=== PATIENT | female | born 1950 | race Caucasian/White ===

== ENCOUNTER 2016-11-12 08:18 | Emergency (ER) | payer MEDICARE, OTHER ==
[~2016-11-12] VITALS: Ht 154.9 cm; Wt 95.5 kg
[2016-11-12 08:20] VITALS: BP 235/108; PULSE 76; RESP 20; O2SAT 94
--- NOTE | 2016-11-12 08:28 | ED.REPORT ---
HPI-Abd Pain F 40 and Over Date of Service Nov 12, 2016 ED Provider: Joan Snyder MD 66 year old female with a history of hypertension, diabetes and S/P hysterectomy , appendectomy and cholecystectomy who presents to the ED due to a gradual onset of L flank pain since last night. The pain has been constant with intermittent sharp pain with radiation to the LLQ. Pt denies any exacerbating or relieving factors. Pt reports associated nausea and non-bloody vomiting. Pt denies diarrhea, rash and any recent illness. She does report that it has been difficult to have a BM. Nursing Notes Stated Complaint: PAIN LEFT SIDE/VOMITING Chief Complaint: Female Abdominal Pain Nursing Notes Reviewed: Yes Allergies: Coded Allergies: Penicillins (Verified Allergy, Mild, Rash, 06/10/14) chlorpromazine (Verified Allergy, Mild, Rash,Itching,, 06/10/14) Sulfa (Sulfonamide Antibiotics) (Verified Allergy, Unknown, 06/10/14) Scheduled Amlodipine (Amlodipine) 10 Mg Tablet 10 MG DAILY Benazepril (Benazepril) 40 Mg Tablet 40 MG DAILY Furosemide (Furosemide) 40 Mg Tablet 40 MG DAILY Glipizide (Glipizide) 5 Mg Tablet 5 MG BID Metformin (Metformin) 500 Mg Tablet 500 MG PO BID Metoprolol Succinate ER (Metoprolol Succinate ER) 50 Mg Tab.er.24h 50 MG DAILY Ondansetron ODT (Ondansetron ODT) 8 Mg Tab.rapdis 8 MG PO Q8H Scheduled PRN oxyCODONE-Acetaminophen 5-325 mg (oxyCODONE-Acetaminophen 5-325 mg) 1 Each Tablet 1-2 TAB PO Q6H PRN PRN For Pain General Time Seen by MD: 08:27 Chief Complaint Flank pain left Hx Obtained From: Patient Arrived By: Walk-in Sudden in Onset?: No Onset Occurred: Yesterday Symptom Duration: Since onset Progression since Onset: Constant, Gradually worsening Location: : Flank left Quality: Painful, Sharp Radiation: : LLQ Severity: Current: Moderate Associated with: Reports: Nausea, Vomiting Pertinent Negative: Exacerbated by nothing, Relieved by nothing Past Medical History Past Medical History Reports: Diabetes mellitus, Hypertension Past Surgical History Reports: Appendectomy, Cholecystectomy, Hysterectomy Smoking History Never Smoker Social History Alcohol Use: "Social" Drug Use: Denies drug use Review of Systems Basic Review of Systems Eyes: Vision NL, No discharge ENT: Hearing NL, No pain, No nasal congestion, No pharyngeal pain Neurologic: NL mental status, No weakness, No numbness Psychiatric: Normal thought content Constitutional: Denies: Fever Respiratory: Denies: Shortness of breath Cardiovascular: Denies: Chest pain GI: Reports: Abdominal pain, Nausea, Vomiting, Denies: Diarrhea, Hematemesis, Hematochezia Female: Reports: Flank pain, Denies: Dysuria Complete sys rev & neg: except as marked. Physical Exam Vital Signs Vital Signs (First) Date Time Temp Pulse Resp B/P Pulse Ox O2 Delivery O2 Flow Rate FiO2 11/12/16 08:20 36.1 76 20 235/108 94 11/12/16 09:33 Room Air Initial VS: Reviewed, Vital signs abnormal Head / Eyes: Atraumatic, Normocephalic, PERRL ENT: Mucous membranes moist, Conjunctiva normal, No scleral icterus Neck: Supple, Full range of motion Extremities: Vascular intact, Neuro intact Skin: Warm, Dry Neurologic: Alert, Oriented Psychiatric: Behavior normal, Normal thought content General/Constitutional: Awake, Alert, Cooperative Respiratory / Chest: Breath sounds NL, Breath sounds = bilat, No respiratory distress, No rales, No rhonchi, No wheezing, No stridor Cardiovascular: Heart rate NL, Regular rhythm, Heart sounds NL, Peripheral circulation NL Abdomen: Soft, No guarding, No rebound Area of pain to the L flank and L iliac crest, but not TTP on exam. Back: Inspection NL, Full range of motion, No CVA tenderness Interpretation & Diagnostics Lab Results Interpretation Result Diagram: 11/12/16 0850 11/12/16 0850 Test 11/12/16 08:40 11/12/16 08:50 Urine Color Straw (YELLOW) Urine Appearance Hazy (CLEAR,HAZY) Urine pH 6.5 (5.0-8.0) Urine Specific [place] 1.020 (1.003-1.035) Urine Protein 100mg/dL (NEG,TRACE) Urine Glucose (UA) Negativemg/dL (NEGATIVE) Urine Ketones Negativemg/dL (NEGATIVE) Urine Occult Blood Large (NEGATIVE) Urine Nitrite Negative (NEGATIVE) Urine Bilirubin Negative (NEGATIVE) Urine Urobilinogen Normalmg/dL (NORMAL) Urine Leukocyte Esterase Trace (NEGATIVE) Urine RBC 11-50/hpf (0-2) Urine WBC 0-5/hpf (0-5) Urine Epithelial Cells Occasional/hpf (NONE-MOD) Urine Crystals None seen (NONE SEEN) Urine Bacteria Few/hpf (NONE-FEW) Urine Hyaline Casts None/lpf (NONE) Urine Granular Casts None seen (NONE SEEN) Urine Waxy Casts None seen (NONE SEEN) Urine Red Blood Cell Casts None seen (NONE SEEN) Urine White Blood Cell Casts None seen (NONE SEEN) Urine Mucus None seen (None Seen) Urine Trichomonas None seen (NONE SEEN) Urine Yeast Few (NONE SEEN) Urinalysis Comment None Urine Culture Reflexed Indicated White Blood Count 11.7th/mm3 (3.8-10.1) Red Blood Count 5.43mil/mm3 (3.90-5.20) Hemoglobin 15.2g/dL (12.0-15.6) Hematocrit 45.5% (35.0-46.0) Mean Corpuscular Volume 83.8fL (81-100) Mean Corpuscular Hemoglobin 28.0pg (27.0-35.0) Mean Corpuscular Hemoglobin Concent 33.4% (32.0-37.0) Red Cell Distribution Width 13.4% (12.3-15.4) Platelet Count 166bil/L (150-400) Neutrophils (%) (Auto) 74.8% (40-74) Lymphocytes (%) (Auto) 16.0% (14-46) Monocytes (%) (Auto) 6.6% (4-12) Eosinophils (%) (Auto) 2.0% (0-5) Basophils (%) (Auto) 0.3% (0-3) Sodium Level 139mEq/L (134-144) Potassium Level 3.2mEq/L (3.5-5.2) Chloride Level 101mEq/L (97-108) Carbon Dioxide Level 23mmol/L (18-29) Blood Urea Nitrogen 11mg/dL (8-27) Creatinine 0.86mg/dL (0.57-1.00) Estimat Glomerular Filtration Rate 94mL/min (>59) Glucose Level 347mg/dL (60-99) Calcium Level 8.8mg/dL (8.5-10.1) Magnesium Level 1.6mg/dL (1.6-2.6) Total Bilirubin 0.7mg/dL (0.0-1.2) Aspartate Amino Transf (AST/SGOT) 16U/L (0-50) Alanine Aminotransferase (ALT/SGPT) 13U/L (0-32) Alkaline Phosphatase 111U/L (25-165) Total Protein 7.2g/dL (6.4-8.4) Albumin 3.8g/dL (3.4-5.0) Lipase 48U/L (13-60) Hold Sanchez Top Tube Received (Received) General Lab Results Interp 1: Labs reviewed CT Abd / Pelvis Interpretation IMPRESSION: 1. Left hydroureteronephrosis secondary to obstructing 4 mm calculus in the distal left ureter. 2. No additional nephrolithiasis seen. There is a 1 cm sized hyperdensity in the superior pole of the left kidney, likely hyperdense cyst but indeterminate. 3. Status post appendectomy, hysterectomy and cholecystectomy. Ovaries are not seen and may be atrophic or surgically absent. 4. Small fat filled ventral hernias. Dictated by: Bharath Stevens M.D. on 11/12/2016 at 9:28 Study type: Abdominal CT no contrast Interpretation / Wet Read by: Interpret - Radiologist Re-Eval/Medical Decision Med Decision/Clinical Course The patient presents with sudden onset left flank pain with a benign exam which would be less consistent with renal colic. CT confirms diagnosis. Other differential diagnoses considered were pyelonephritis, diverticulitis, bowel obstruction. The patient is noted to be hypertensive, she did not take her usual blood pressure medications which would likely explain her hypertension as well as her pain. The patient's blood pressure did improve and if still elevated, she is instructed to take her medication upon arrival at home. Re-Evaluation/Progress : Time of Eval: 10:13 Re-Evaluation/Progress Note: Pt's pain is much improved. Updated pt of labs and imaging results. Discussed plan for discharge and follow up. All questions addressed. Counseled Regarding: Diagnosis, Lab results, Need for follow-up, When/why to return to ED Discharge & Departure Primary Impression: Renal colic Disposition: Home Discharge Condition All VS Reviewed: Yes Condition: Improved Patient Instructions: Renal Colic (ED) Additional Instructions: You have a kidney stone. Please strain your urine to catch the stone. It should pass in the next few days to week. You can take the pain medication, Percocet, as directed to help with the pain. If you develop nausea you can take the Zofran as directed. Follow up with the urologist or your PCP. If you catch the stone make sure to bring this with you. Seek care for any new or concerning symptoms. Referrals: Priya Durant PA-C (PCP) Dionicio Engel MD Attestation Portions of this note were transcribed by Ange Morelos. I, (Dr. Joan Snyder) personally performed the history, physical exam and medical decision-making; I reviewed and confirmed the accuracy of the information in the transcribed note. Signed by: Ange Morelos. Breanna, 11/12/16, 1024 copies to: Priya Durant PA-C; Dionicio Engel MD, Jena M MD Nov 12, 2016 08:28 Ange Morelos Nov 12, 2016 08:57
[2016-11-12] MEDS ORDERED: 0.9% Sodium Chloride 500 ML IV ONE (08:30)
[2016-11-12] MEDS ORDERED: HYDROmorphone 0.5 mg/0.5 mL iSecure Syringe IVPUSH ONE (08:30)
[2016-11-12] MEDS ORDERED: Ondansetron 2 mg/mL 2 mL Inj IVPUSH PRN (08:30)
[2016-11-12] MEDS ORDERED: Iohexol 300 mg/mL 30 mL Inj PO ONE (08:30)
[2016-11-12] MEDS: HYDROmorphone 0.5 mg/0.5 mL iSecure Syringe IVPUSH PRN ×3 (09:02→10:50)
[2016-11-12 09:04] LABS: BASOPHILS % (AUTO) 0.3 % (0-3); MONOCYTES % (AUTO) 6.6 % (4-12); Mean Corpuscular Volume 83.8 fL (81-100); NEUTROPHILS % (AUTO) 74.8 % (40-74); Platelet Count 166 bil/L (150-400)
[2016-11-12] MEDS ORDERED: FURO40TA4 (09:20)
[2016-11-12] MEDS ORDERED: METO-272 (09:20)
[2016-11-12] MEDS ORDERED: BENA40TA2 (09:20)
[2016-11-12] MEDS ORDERED: GLPZ5T (09:20)
[2016-11-12] MEDS ORDERED: METF500T4 PO (09:20)
[2016-11-12] MEDS ORDERED: AMLO10TA3 (09:20)
[2016-11-12 09:27] LABS: Magnesium 1.6 mg/dL (1.6-2.6)
[2016-11-12 09:31] LABS: APPEARANCE,URINE HAZY (CLEAR,HAZY); COLOR,URINE STRAW (YELLOW); OCCULT BLOOD,URINE LARGE (NEGATIVE); PH,URINE 6.5 (5.0-8.0); UROBILINOGEN,URINE NORMAL (NORMAL)
[2016-11-12 09:33] VITALS: BP 208/76; PULSE 63; O2SAT 92
[2016-11-12 09:38] LABS: YEAST,URINE FEW (NONE SEEN)
--- NOTE | 2016-11-12 09:41 | DRSVH ---
PROCEDURE: CT KUB ([id number]) INDICATIONS: left flank pain TECHNIQUE: Noncontrast 5 mm thick sections acquired from the diaphragms to the symphysis. 5 mm thick coronal an d sagittal reformats were then performed. For radiation dose reduction, the following was used: aut omated exposure control, adjustment of mA and/or kV according to patient size. COMPARISON: CT abdomen and pelvis 11/30/2014, 05/03/2007 FINDINGS: Image quality: Excellent. Lung bases: Lung bases are clear. Heart size is normal. Urinary system: The right kidney is unremarkable. The left kidney is mildly enlarged and hydronephro tic with hydroureter. There is perinephric and periureteric fat stranding, all secondary to a 4 mm ob structing calculus in the distal left ureter, attenuation 380. The stone is approximately 3.5 cm prox imal to the UVJ. Nondistended urinary bladder is unremarkable, normal wall thickness with no stones. The left kidney shows no additional stones however there is a 1.0 x 1.1 x 1.8 cm hypodense filling de fect in the anteromedial upper pole, likely hyperdense cyst but indeterminate. Other solid organs: Liver and spleen are normal in size. Gallbladder is surgically absent. Pancrea s is normal in contours. No adrenal nodules. Peritoneum and bowel: Unenhanced bowel loops demonstrate normal wall thickness and caliber. The appe ndix is not seen and there are surgical clips in that region. No free fluid or air. Nodes and vessels: No retroperitoneal or mesenteric adenopathy by size criteria. Aorta and inferior vena cava are normal in caliber. Splenic artery is calcified. Abdominal wall: There are 2 small fat filled right ventral hernias in the right upper quadrant. Pelvis: No free pelvic fluid. No inguinal hernias or adenopathy. Uterus and ovaries are nonvisualiz ed and presumed to be surgically absent. Right ovarian mass on prior CT no longer seen. Bones: No suspicious bony lesions. There is disc narrowing and vacuum phenomena involving all lumba r discs. No vertebral body compression fractures. IMPRESSION: 1. Left hydroureteronephrosis secondary to obstructing 4 mm calculus in the distal left ureter. 2. No additional nephrolithiasis seen. There is a 1 cm sized hyperdensity in the superior pole of the left kidney, likely hyperdense cyst but indeterminate. 3. Status post appendectomy, hysterectomy and cholecystectomy. Ovaries are not seen and may be atroph ic or surgically absent. 4. Small fat filled ventral hernias. Dictated by: Bharath Stevens M.D. on 11/12/2016 at 9:28 Approved by: Bharath Stevens M.D. on 11/12/2016 at 9:40
[2016-11-12] MEDS ORDERED: ONDA8TAB10 PO (10:24)
[2016-11-12] MEDS ORDERED: OXYC1TAB24 PO (10:24)
[2016-11-12 10:50] VITALS: BP 194/75; PULSE 69; O2SAT 93
[2016-11-12 11:10] VITALS: BP 194/75; PULSE 69; RESP 20; O2SAT 93
== END 2016-11-12 10:30 | disposition home or self-care (01) ==
LOC: SED 08:18
DX: N23 Unspecified renal colic (principal); E11.9 Type 2 diabetes mellitus without complications; I10 Essential (primary) hypertension; Z90.710 Acquired absence of both cervix and uterus; Z90.49 Acquired absence of other specified parts of digestive tract; Z90.89 Acquired absence of other organs; Z79.84 Long term (current) use of oral hypoglycemic drugs; Z88.0 Allergy status to penicillin; Z88.2 Allergy status to sulfonamides; Z88.8 Allergy status to other drugs, medicaments and biological substances
CPT/HCPCS: 36415; 74176; 80053; 81000; 83690; 83735; 85025; 87086; 87088; 96361; 96374; 96375; 96376; 99285; J1170; J2405; J7040